=== PATIENT | male | born 1970 | race Caucasian/White ===

== ENCOUNTER 2024-04-29 09:37 | Emergency (ER) | payer BC, SELFPAY ==
[2024-04-29 09:37] VITALS: BP 152/101; PULSE 81; RESP 16; TEMP 36.2; O2SAT 93; BMI 26.8
--- NOTE | 2024-04-29 10:20 | EX.ED.UPPERE ---
HPI History of Present Illness HPI Narrative: Healthy 53-year-old male no seen past medical history. He is right-hand dominant. He was working with sheet metal 3 sheets of the sheet-metal corner got jammed into the palm of his left hand. This occurred about an hour ago. He has had pulsatile bleeding. Denies any other injuries or complaints. Unsure of his tetanus status thinks it might have been 5 years ago. Chief Complaint: Laceration Informant: patient and spouse/S.O. Occured/Mechanism Mechanism/Context: Yes injury Onset/Context/Timing Onset: Today Context: Sudden Onset Timing: Continuous Quality of Pain: Sharp Current Severity: Moderate Maximum Severity: Moderate Narrative Narrative: [id number] 53-year-old healthy male with palm laceration to his left hand an hour ago. Prior similar symptoms: No Recent Illness/Hospitalization: No PFSH PFSH Medical History no medical history no medical history Home Medications ?Medication ?Instructions ?Recorded ?Last Taken ?Type No Known/Unobtainable [No Known 09/07/16 Unknown History Home Medications] Allergy/AdvReac Type Severity Reaction Status Date / Time clarithromycin Allergy Swelling Verified 04/29/24 09:41 Penicillins (PCN) Allergy Other Verified 04/29/24 09:41 Social History Smoking Status: Never smoker ROS ROS ED ROS Narrative Denies recent illness. Review of Systems ROS Unobtainable: Denies due to encephalopathy Constitutional Constitutional ED: Denies chills or fever(s) Eyes Eyes: Denies blurry vision ENT ENT ED: Denies ear pain Cardiovascular Cardiovascular: Denies chest pain Respiratory/Chest Respiratory/Chest: Denies cough or dyspnea Gastrointestinal Gastrointestinal: Denies abdominal pain Genitourinary Genitourinary ED: Denies dysuria or hematuria Musculoskeletal Musculoskeletal: Denies back pain or myalgias Integumentary Denies abscess or Abrasions Neurologic Neurologic: Denies headache(s) Psychiatric Psychiatric: Denies anxiety or depression Endocrine Endocrinology: Denies cold intolerance Hematologic/Lymphatic Hematologic/Lymphatic: Denies easy bleeding or easy bruising Allergic/Immunologic Allergic/Immunologic ED: Denies mouth swelling or tongue swelling EXAM Physical Exam Narrative Exam Narrative: Well-appearing 53-year-old male. Vital signs stable afebrile. H EENT exam normal. Neck nontender. Lungs clear. Heart regular rhythm rate about 80 no murmur. Chest wall ribs nontender. Abdomen soft nontender. Moving all 4 extremities. When I moved the bandage in the palm of the left hand he has pulsatile arterial bleeding. He is able to flex and extend all digits of his hand. He does have pinprick sensation to all fingertips. Laceration in the palm of his hand. Right over the arterial arch. Const Vital Signs: 04/29/24 09:37 Temperature 97.2 F L Temperature Source Temporal Pulse Rate 81 Respiratory Rate 16 Blood Pressure 152/101 H Blood Pressure Mean 118 Pulse Ox 93 Oxygen Delivery Method Room Air Positive well nourished and well developed; Negative for obese, cachectic, contractures or unkempt General Appearance ED: well developed; Negative for unkempt, cachectic, contractures, cyanotic or diaphoretic Nutritional Appearance: Negative for cachectic or obese HEENT Reports moist mucous membranes normocephalic and atraumatic; Negative for trauma or tenderness Eyes PERRL and EOMs intact bilaterally General Eye ED: Negative for other Neck full ROM and supple General: Negative for tenderness Lymph Lymphatic: Negative for other Chest Wall inspection of chest normal and palpation of chest normal Chest: Negative for other Resp normal respiratory effort and clear to auscultation bilaterally Effort and Inspection: Negative for pain with movement Auscultation: Negative for rales, rhonchi, wheezes or diminished lung sounds Cardio regular rate, regular rhythm, S1 normal heart sound, S2 normal heart sound and no murmurs Rate: Negative for bradycardia or tachycardic Rhythm: Negative for abnormal rhythm GI non-tender, non-distended and no masses Inspection: Negative for abdominal distention Auscultation: normoactive bowel sounds Palpation: soft; Negative for tender, guarding or rebound tenderness present Back/Spine no CVA tenderness General Back: Negative for CVA tenderness Cervical Spine: Negative for cervical spine tenderness Thoracic Spine / Upper Back: Negative for thoracic spinal tenderness Lumbar Spine / Lower Back: Negative for lumbar spinal tenderness Extremity normal to inspection and full ROM Extremity Narrative: Except left palm. Palmar laceration. Arterial bleeding. Pinprick sensation positive to all fingertips. Flexion extension intact. General Extremety ED: Negative for edema General Extremity: Negative for edema Neuro oriented x3, CN's II-XII intact bilaterally, moves all extremities and no focal motor deficits Sensorium / Orientation: alert, oriented to person, oriented to place and oriented to time; Negative for orientation impaired or lethargic Motor Exam: strength 5/5 throughout Psych mental status grossly normal Appearance: Negative for unkempt Attitude: No agitated Mood & Affect: Negative for depressed, anxious or tearful Skin General Skin Exam: Negative for petechiae Lesions: no lesions Rashes: no rashes Trauma: laceration Image ED - Upper Extremity Diagram: 1. Left palm laceration. Pulsatile bleeding. MDM MDM MDM Narrative Medical decision making narrative: 53-year-old male left hand palmar laceration. Not Worker's Comp. He has arterial injury. I did speak to our plastic surgeon who would gladly have done the case but unfortunately the equipment he needs is currently on order and not here. I have already to clean clinic transfer line. The patient to be sent to [facility] For trauma transfer and hand consultation for suspected arterial repair. Rule out tendon and nerve injury. Currently appears to have sensation. He also has range of motion.Patient be treated with IV Ancef and morphine for pain. History & Record Review Discussion w/independent historian: Patient and Family Discharge Plan Triage Chief Complaint: Laceration ED Provider: Artuor Jaime Dx/Rx/DC Orders Clinical Impression: Laceration of left hand, Vascular injury Prescriptions: No Action No Known Home Medications Primary Care Provider: Care Physician,No Primary Referrals: [place] Julian MD [Non-Staff] - Print Language: Turkmen Disposition Disposition: Acute Care Hospital
[2024-04-29] MEDS: Ondansetron 4 MG/2 ML Vial IV (10:25)
[2024-04-29] MEDS: morphine 8 MG/ML Syringe 6 MG IV (10:25)
[2024-04-29] MEDS: Cefazolin 1 GM/50 ML BAG IV (10:25)
--- NOTE | 2024-04-29 10:30 | RAD_ITS ---
STUDY: X-RAY - LEFT HAND REASON FOR EXAM: Male, 53 years old. Laceration in palm w/ arterial bleeding TECHNIQUE: 3 view(s) of the hand. COMPARISON: None. FINDINGS: Normal radiocarpal articulation. Normal distal radioulnar joint. Normal visualized carpal bones. Normal carpal articulations Normal carpometacarpal articulation of the thumb. Normal second through fifth carpometacarpal joints. Normal metacarpi. Normal metacarpophalangeal joint of the thumb. Normal interphalangeal joint of the thumb. Normal proximal and distal phalanges of the thumb. Normal metacarpophalangeal joints of the second through fifth fingers. Normal proximal and distal interphalangeal joints of the second through fifth fingers. Normal phalanges of the second through fifth fingers. Soft tissue injury. No radiopaque foreign body is seen. RAD/Hand Min 3 Views IMPRESSION: Soft tissue injury. Electronically Signed: Brandon Levine MD at 10:47 EDT ,
[2024-04-29] MEDS: Diphth,Pertuss(Acell),Tet Vac 0.5 ML Vial IM (10:33)
[2024-04-29 10:36] VITALS: BP 126/92; PULSE 62; RESP 15; O2SAT 97
[2024-04-29 10:48] VITALS: BP 126/92; PULSE 74; RESP 16; TEMP 36.2; O2SAT 99
== END 2024-04-29 10:49 | disposition short-term general hospital (02) ==
PROVIDERS: Emergency Provider Emergency Medicine; Visit Provider Emergency Medicine
DX: S61.412A Laceration without foreign body of left hand, initial encounter (principal); W23.0XXA Caught, crushed, jammed, or pinched between moving objects, initial encounter; Z23 Encounter for immunization
CPT/HCPCS: 73130; 90471; 96365; 96375; 99283; J7050; A4216; J2405